=== PATIENT | male | born 1980 | race Caucasian/White ===

== ENCOUNTER 2022-12-02 12:55 | Inpatient (IN) | payer OTHER, SELFPAY ==
[2022-12-02] VITALS (26 sets, daily range): BP systolic 105–142; BP diastolic 57–84; PULSE 72–96; RESP 12–24; TEMP 36.3–38.8; O2SAT 90–97; BMI 23.6
--- NOTE | 2022-12-02 13:22 | CRLHL7_ITS ---
For Patients: As a result of the Century Cures Act, medical imaging exams and procedure reports are released immediately into your electronic medical record. You may view this report before your referring provider. If you have questions, please contact your health care provider. Indication: Right lower quadrant pain Technique: Volumetric multidetector CT images of the abdomen and pelvis were obtained after the administration of intravenous contrast. 76 cc Isovue 370 low osmolar intravenous contrast Comparison: None available. Findings: There is basilar atelectasis and parenchymal scar. The liver is normal in attenuation without intrahepatic biliary ductal dilatation. The portal vein is patent. The gallbladder is unremarkable without evidence of radiopaque calculus. There is no significant common biliary ductal dilatation or abrupt cut off. The spleen is normal in enhancement and size. There is mild thickening of the gastric antrum with minimal gastric mucosal hyperemia. The pancreas is normal in enhancement without significant atrophy. The adrenal glands are unremarkable. The kidneys demonstrate preserved corticomedullary differentiation without evidence of obstructive uropathy. There is mild to moderate stool seen throughout the colon with minimal colonic diverticulosis without definite evidence of diverticulitis. There is a markedly dilated fluid-filled appendix with moderate periappendiceal inflammatory change measuring up to 1.3 centimeters. There is no definite evidence of rupture. There is demonstration of a 4 millimeter calcified appendicolith at the base. There is no significant mesenteric, retroperitoneal, or pelvic sidewall lymph nodes. The aorta is nonaneurysmal. There is no significant atherosclerotic disease appreciated. The solid pelvic viscera are grossly unremarkable. There is no free fluid or free air. The anterior abdominal wall is intact without significant hernias. The lumbar vertebral body heights are grossly maintained in satisfactory alignment without evidence of displaced fracture, lytic or blastic lesion. Impression: There is a dilated fluid-filled appendix consistent with appendicitis measuring 1.2 centimeters in greatest dimension with moderate periappendiceal inflammatory change. There is a 4 millimeter calcified appendicolith at the base. There is no evidence of rupture or rim enhancing fluid collection Please note that all CT scans at this facility use dose modulation, iterative reconstruction, and/or weight-based dosing when appropriate to reduce radiation dose to as low as reasonably achievable. Dictated by Willie Denton MD @ 12/02/2022 2:48:54 PM (Electronically Signed)
--- NOTE | 2022-12-02 13:28 | ED_ITS ---
HPI - General Adult General Chief complaint: Abdominal Pain Stated complaint: Abdominal pain Time Seen by Provider: 12/02/22 13:06 History of Present Illness HPI narrative: Patient is a 41 year white male who has had 24 hours of abdominal discomfort, before that he had some general malaise and abdominal discomfort, but more pain today in the right lower quadrant. He has had some looser stool but no real diarrhea. He has been very healthy. He is on no home medications. He ate last about 2 hours ago. He has had no cardiac or respiratory problems. Reports that he did have significant pain in his right lower quadrant when he was driving in the car into the hospital. No recent illness, no COVID symptoms or cough. Related Data Allergies Allergy/AdvReac Type Severity Reaction Status Date / Time No Known Drug Allergies Allergy Verified 12/02/22 14:27 Review of Systems Status of ROS: Reports: 6 or more systems reviewed and unremarkable except as noted in History and below PFSH PFS Social History Smoking Status: Unknown if ever smoked Do you use any of these nicotine containing products: None Exam Narrative: Exam Narrative: Objective: Patient's vital signs unremarkable other than mild temperature He is alert orient x3 knows no distress Chest is clear heart rhythm regular heart murmur abdomen is got voluntary and peritoneal guarding in the right lower quadrant bowel sounds are hypoactive throughout he has definite got rigidity in his right lower quadrant, denies any symptoms Extremities are no edema neurologic nonfocal Const: Vital Signs, click to edit/add: Vital Signs - 24 hr 12/02/22 13:02 12/02/22 14:02 12/02/22 14:03 Temperature 99.3 F Pulse Rate 79 82 Pulse Rate [Right Pulse Oximeter] 86 Respiratory Rate 16 Blood Pressure 128/82 Blood Pressure [Ri ght Upper Arm] 132/77 Pulse Oximetry 97 96 96 Oxygen Delivery Me thod Room Air 12/02/22 14:15 12/02/22 14:20 12/02/22 14:49 Temperature 99.6 F Pulse Rate 79 Pulse Rate [Right Pulse Oximeter] Respiratory Rate Blood Pressure Blood Pressure [Ri ght Upper Arm] Pulse Oximetry 97 96 Oxygen Delivery Me thod 12/02/22 15:42 Temperature Pulse Rate Pulse Rate [Right Pulse Oximeter] 84 Respiratory Rate 20 Blood Pressure Blood Pressure [Ri ght Upper Arm] Pulse Oximetry 97 Oxygen Delivery Me thod Room Air Course Vital Signs Vital signs: Initial Vital Signs Temperature 99.3 F 12/02/22 13:02 Temperature Source Temporal Artery Scan 12/02/22 13:02 Pulse Rate 86 12/02/22 13:02 Pulse Rhythm Regular 12/02/22 13:02 Pulse Strength 3+ Normal 12/02/22 13:02 Respiratory Rate 16 12/02/22 13:02 Blood Pressure 132/77 12/02/22 13:02 Blood Pressure Mean 95 12/02/22 13:02 Blood Pressure Position Sitting 12/02/22 13:02 Pulse Oximetry 97 12/02/22 13:02 Oxygen Delivery Method Room Air 12/02/22 13:02 Vital Signs Temperature 99.3 F 12/02/22 13:02 Pulse Rate 86 12/02/22 13:02 Respiratory Rate 16 12/02/22 13:02 Blood Pressure 132/77 12/02/22 13:02 Pulse Oximetry 97 12/02/22 13:02 Oxygen Delivery Method Room Air 12/02/22 13:02 Temperature 99.6 F 12/02/22 14:49 Pulse Rate 84 12/02/22 15:42 Respiratory Rate 20 12/02/22 15:42 Blood Pressure 128/82 12/02/22 14:03 Pulse Oximetry 97 12/02/22 15:42 Oxygen Delivery Method Room Air 12/02/22 15:42 Medical Decision Making [facility] Narrative Medical decision making narrative: Patient is a 41-year-old white male with right lower quadrant pain with peritonitis likely consistent with appendicitis. The patient will get IV fluid, laboratory studies, CT scan with IV contrast of his abdomen and pelvis to confirm appendicitis. Would keep him NPO for now he last ate he reports 2 hours ago, so about 530 would be only 6 hours of NPO. He has had no recent illness. He has been very healthy. Surgical consult pending CT scan findings Lab Data Labs: Lab Results 12/02/22 Range/Units 13:33 WBC 16.36 H (4.50-11.00) K/uL RBC 5.06 (4.30-5.90) m/uL Hgb 15.1 (13.5-17.5) gm/dL Hct 44.2 (37.0-53.0) % MCV 87 (80-100) fL MCH 30 (26-34) pg MCHC 34 (32-36) gm/dL RDW Coeff of Caesar 12.5 (11.5-15.5) % Plt Count 207 (140-440) K/uL Neut % (Auto) 81.8 H (42.0-72.0) % Lymph % (Auto) 6.5 L (20-44) % Taney % (Auto) 11.2 H (0.0-11.0) % Eos % (Auto) 0.1 (0.0-7.0) % Baso % (Auto) 0.2 (0.0-3.0) % Neut # (Auto) 13.40 H (1.7-7.0) K/uL Lymph # (Auto) 1.10 (0.90-2.90) K/uL Taney # (Auto) 1.80 H (0.00-0.90) K/UL Eos # (Auto) 0.00 (0.00-0.50) K/uL Baso # (Auto) 0.00 (0.00-0.30) K/uL Sodium 136 (135-149) mmol/L Potassium 4.1 (3.6-5.1) mmol/L Chloride 104 (96-114) mmol/L Carbon Dioxide 27 (20-32) mmol/L BUN 13 (5-24) mg/dL Creatinine 0.7 (0.5-1.5) mg/dL Estimated Creat Clear 137.07 Estimated GFR 120 ml/min Glucose 116 H (60-115) mg/dL Calcium 8.8 (8.4-10.6) mg/dL Total Bilirubin 1.4 (0.1-1.5) mg/dL Direct Bilirubin 0.2 (0.0-0.5) mg/dL AST 18 (12-35) U/L ALT 21 (4-50) U/L Alkaline Phosphatase 44 (40-150) U/L C-Reactive Protein 8.2 H (0.5-1.0) mg/dL Total Protein 6.8 (6.0-8.3) g/dL Albumin 4.2 (3.3-5.0) g/dL Amylase 50 (18-89) U/L Discharge Plan Discharge Clinical Impression: Abdominal pain, acute, Acute appendicitis
[2022-12-02 13:39] LABS: Basophils Percent Auto 0.2 % (0.0-3.0); Eosinophils Percent Auto 0.1 % (0.0-7.0); Hematocrit 44.2 % (37.0-53.0); Hemoglobin* 15.1 gm/dL (13.5-17.5); Immature Granulocytes Pct Auto 0.2 %; Lymphocytes Percent Auto 6.5 % (20-44); Mean Corpuscular HGB Conc 34 gm/dL (32-36); Mean Corpuscular Hemoglobin 30 pg (26-34); Mean Corpuscular Volume 87 fL (80-100); Monocytes Percent Auto 11.2 % (0.0-11.0); Neutrophils Percent Auto 81.8 % (42.0-72.0); Platelet Count* 207 K/uL (140-440); RDW Coefficient of Variation % 12.5 % (11.5-15.5); Red Blood Count 5.06 m/uL (4.30-5.90); White Blood Count* 16.36 K/uL (4.50-11.00)
[2022-12-02 13:45] LABS: Slide Review Reflex No
[2022-12-02 13:51] LABS: Chloride* 104 mmol/L (96-114)
[2022-12-02 13:52] LABS: Albumin* 4.2 g/dL (3.3-5.0); Potassium* 4.1 mmol/L (3.6-5.1); Sodium* 136 mmol/L (135-149)
[2022-12-02 13:54] LABS: Amylase* 50 U/L (18-89); Carbon Dioxide* 27 mmol/L (20-32)
[2022-12-02 13:55] LABS: Alkaline Phosphatase* 44 U/L (40-150); Aspartate Amino Transferase* 18 U/L (12-35); Bilirubin Direct* 0.2 mg/dL (0.0-0.5); Bilirubin Total* 1.4 mg/dL (0.1-1.5); Blood Urea Nitrogen* 13 mg/dL (5-24); Creatinine* 0.7 mg/dL (0.5-1.5); Est. Creatinine Clearance* 137.07; Estimated Glomerular Filt Rate 120 ml/min; Glucose* 116 mg/dL (60-115); Total Protein* 6.8 g/dL (6.0-8.3)
[2022-12-02 13:56] LABS: Alanine Aminotransferase* 21 U/L (4-50); Calcium* 8.8 mg/dL (8.4-10.6)
[2022-12-02] MEDS: 0.9 % SODIUM CHLORIDE 1000 ml 1,000 ML 6000 ML IV (13:56)
[2022-12-02 13:58] LABS: C Reactive Protein* 8.2 mg/dL (0.5-1.0)
[2022-12-02] MEDS: HYDROmorphone 0.5 mg/0.5 ml inj IVP ×2 (15:31→21:00)
--- NOTE | 2022-12-02 15:49 | P.GSHP_ITS ---
History of Present Illness History of Present Illness Date Seen: 12/02/22 Chief complaint: Abdominal pain Narrative: Juan Gan is a 41 year old male who presented to the emergency department with a less than 1 day history of abdominal pain. He states that the pain initially started in the middle of his abdomen. It then migrated to the right lower quadrant. He has never had pain like this before. The pain gets worse with any sort of movement any noticed every bump on his drive over to the hospital. Did have some nausea, no associated emesis. No fevers at home. He has never had abdominal surgery before. Patient had half a sandwich around noon. Review of Systems Status of ROS: Reports: 10 or more systems reviewed and unremarkable except as noted in History and below [facility] Social History Smoking Status: Unknown if ever smoked Do you use any of these nicotine containing products: None Meds Home Medications and Allergies Allergies Allergy/AdvReac Type Severity Reaction Status Date / Time No Known Drug Allergies Allergy Verified 12/02/22 14:27 Exam Narrative: Exam Narrative: General: Alert and oriented, no acute distress Respiratory: Equal breath rise bilaterally, maintained on room air CV: Regular rhythm rate, well perfused Abdomen: Soft, tender to palpation right lower quadrant with some guarding, no rebound Const: Vital Signs, click to edit/add: Vital Signs - 24 hr 12/02/22 13:02 12/02/22 14:02 12/02/22 14:03 Temperature 99.3 F Pulse Rate 79 82 Pulse Rate [Right Pulse Oximeter] 86 Respiratory Rate 16 Blood Pressure 128/82 Blood Pressure [Ri ght Upper Arm] 132/77 Pulse Oximetry 97 96 96 Oxygen Delivery Me thod Room Air 12/02/22 14:15 12/02/22 14:20 12/02/22 14:49 Temperature 99.6 F Pulse Rate 79 Pulse Rate [Right Pulse Oximeter] Respiratory Rate Blood Pressure Blood Pressure [Ri ght Upper Arm] Pulse Oximetry 97 96 Oxygen Delivery Me thod 12/02/22 15:42 Temperature Pulse Rate Pulse Rate [Right Pulse Oximeter] 84 Respiratory Rate 20 Blood Pressure Blood Pressure [Ri ght Upper Arm] Pulse Oximetry 97 Oxygen Delivery Me thod Room Air Results Results Labs: Evidence of leukocytosis (white blood cell count 16) Abdomen CT scan report/results: report reviewed and image reviewed Assessment and Plan Assessment and plan (1) Acute appendicitis: Status: Acute Plan The patient presented with a history, exam and imaging findings consistent with acute appendicitis. I discussed the treatment options with the patient including non-surgical and surgical options. I recommended laparoscopic appendectomy. The risks of surgery were reviewed with the patient including the risks of bleeding, post-operative wound or intra-abdominal infection, injury to abdominal structures and possible conversion to an open operation. We also discussed anesthetic complications including [place], stroke, respiratory failure and blood clots. The patient voiced an understanding of our conversation, had the opportunity to ask questions, agreed to accept the risks of surgery and asked that we proceed with surgery. This is considered an emergent procedure, given the risk of perforation and developing sepsis. Will plan for patient to go to the operating room as soon as possible.
[2022-12-02] MEDS: KETOROLAC 15 MG/ML inj IVP (18:50)
[2022-12-02] MEDS: LACTATED RINGERS 1000 ML 1,000 ML 125 ML IV (18:50)
[2022-12-02] MEDS: PIPERACILLIN/TAZOBACTAM 3.375 GM INJ IVPB (19:55)
[2022-12-02] MEDS: BUPIVACAINE 0.25% 30 ML INJECTION (20:37)
--- NOTE | 2022-12-02 20:52 | P.GSOP_ITS ---
Operative Note Date of procedure: 12/02/22 Pre-op diagnosis: Acute appendicitis Post-op diagnosis: Same, perforated Type of Procedure: Laparoscopic appendectomy Indications: Patient is a 41-year-old male who presented to the emergency department with clinical workup and CT scan confirming a diagnosis of acute appendicitis. Risks and benefits of operative intervention were discussed at length with the patient. Risks included but was not limited to: Bleeding, infection, risk of damage to surrounding structures, possible need for additional procedures, possible need to convert to an open operation and postoperative complications such as pneumonia, pulmonary emboli or [place]. All questions and concerns were addressed with the patient agreeing to proceed. Procedure Description: After discussing the risks and benefits of the procedure, the patient signed informed consent.? The operative site was marked and the patient was brought to the operating room and placed on the operating table in supine position.? Care was taken to pad the patient's pressure points.?? The patient was then intubated by anesthesia.?? The operative site was then prepped and draped in the usual sterile fashion.? A time-out was then performed. Entrance to the abdomen was obtained via a 5 mm optical trocar in the left upper quadrant. The abdomen was insufflated and briefly surveyed for any signs of injury. There were none. A 12 mm port was placed lateral to the umbilicus as well as a 5 mm port in the left lower quadrant under direct vision. The patient was then placed in Trendelenburg position with the right side up. The small bowel was gently moved out of the way and the appendix was in view. A small amount of dissection was necessary to free the appendix from the surrounding pelvic attachments. The omentum was densely adherent to the appendix, with evidence of a surrounding rind and some fibrinous exudate. A small perforation was present on the top of midbody with some stool contamination. The body was grasped and pulled into view. A mesenteric window was created between the base of the appendix, which did not appear inflamed and the mesoappendix. A 45 mm Endo-ROCK sanchez load stapler was then used to transect the appendix at its base. A 45 mm vascular load stapler was then used to take the mesoappendix. The staple lines were inspected for bleeding. There was none. The appendix was then removed from the abdomen using an Endo-Catch bag. The specimen was sent to pathology. The 12 mm port site fascia was closed with 0 Vicryl via the Taran- Cuong. All other ports were removed under direct visualization. The skin was then closed with absorbable subcuticular suture. Sterile dressings were then applied. Instrument sponge and needle counts were correct at the end of the case. The patient was then woken and transported to the PACU in stable condition. Findings: Perforated appendicitis, necrosis to the body and tip of the appendix. Small amount of stool contamination in right lower quadrant. Anesthesia: GETA Surgeon: Elisabeth Ceballos MD Estimated blood loss (mL): 2 Specimen: Appendix Condition: stable Disposition: floor
--- NOTE | 2022-12-02 20:56 | P.ANES_ITS ---
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
[2022-12-02] MEDS: LACTATED RINGERS 1000 ML 1,000 ML 35 ML IV (21:15)
[2022-12-02] MEDS: fentaNYL 100 MCG/2 ML inj 50 MCG IVP ×2 (21:16→21:26)
[2022-12-02] MEDS: OXYCODONE 5 MG TABLET PO (22:05)
--- NOTE | 2022-12-02 22:45 | PC.NURSE ---
End of shift ([id number]): Patient pleasant and cooperative. Patient vitally stable, lungs clear, BS WNL, IV running LR at 125. Patient SBA with IV pole. Patient rates pain 5/10, toradol given once before surgery, and 5 of oxy given once after surgery. Patient did have a fever of 101.8 before surgery, patient has been afebrile since. Patient tolerating clear liquid diet and has not urinated. Abdominal Lap sites x3 C/D/I.
[2022-12-02] MEDS: ACETAMINOPHEN 325 MG TABLET 650 MG PO (23:52)
[2022-12-03] VITALS (10 sets, daily range): BP systolic 107–138; BP diastolic 71–84; PULSE 78–99; RESP 14–24; TEMP 36.7–37.9; O2SAT 90–94
--- NOTE | 2022-12-03 | CRLHL7_ITS ---
For Patients: As a result of the Century Cures Act, medical imaging exams and procedure reports are released immediately into your electronic medical record. You may view this report before your referring provider. If you have questions, please contact your health care provider. Indication: Chest pain shortness of breath, postoperative Technique: Chest 1 view Comparison: None Findings/Impression: Cardiovascular and mediastinum: Heart size and vasculature are normal in caliber and appearance. Lungs and pleural space: Low lung volumes without pleural effusion or pneumothorax. Basilar discoid atelectasis. Mild reticular interstitial prominence in the perihilar regions, possibly mild interstitial edema. Bones and soft tissues: No acute findings. Dictated by Crescencio Rios MD @ 12/03/2022 2:39:52 PM (Electronically Signed)
[2022-12-03] MEDS: OXYCODONE 5 MG TABLET PO ×5 (02:30→22:26)
[2022-12-03] MEDS: PIPERACILLIN/TAZOBACTAM 3.375 GM in 0.9 % SODIUM CHLORIDE Mini-bag 100 ML IVPB ×4 (02:30→19:37)
[2022-12-03] MEDS: HYDROmorphone 0.5 mg/0.5 ml inj IVP ×3 (04:26→12:05)
[2022-12-03] MEDS: LACTATED RINGERS 1000 ML 1,000 ML 35 ML IV (06:51)
[2022-12-03 07:38] LABS: Basophils Percent Auto 0.2 % (0.0-3.0); Hematocrit 39.9 % (37.0-53.0); Hemoglobin* 13.2 gm/dL (13.5-17.5); Immature Granulocytes Pct Auto 1.1 %; Lymphocytes Percent Auto 7.1 % (20-44); Mean Corpuscular HGB Conc 33 gm/dL (32-36); Mean Corpuscular Hemoglobin 30 pg (26-34); Mean Corpuscular Volume 90 fL (80-100); Monocytes Percent Auto 8.6 % (0.0-11.0); Platelet Count* 179 K/uL (140-440); RDW Coefficient of Variation % 12.6 % (11.5-15.5); Red Blood Count 4.43 m/uL (4.30-5.90); White Blood Count* 12.26 K/uL (4.50-11.00)
--- NOTE | 2022-12-03 07:42 | PC.NURSE ---
END OF SHIFT NOTE: PT PLEASANT AND COOPERATIVE WITH CARES. - BOUBACAR AT BEDSIDE OVERNIGHT. PT DENIES CP, SOB, N/V. AMBULATES INDEPENDENTLY WITHIN ROOM. VSS ON RA; AFEBRILE. C/O ABDOMINAL PAIN 4-7/10 WITH RELIEF FROM ICE AND PRN PAIN MEDS. CALL LIGHT WITHIN PT?S REACH. 3 LAP SITES CDI. TOLERATING WATER AND ICE CHIPS OVERNIGHT.
[2022-12-03 07:44] LABS: Slide Review Reflex No
--- NOTE | 2022-12-03 08:20 | PM.GSPN ---
Subjective Subjective Date Seen: 12/03/22 Interval history: Patient is doing okay this morning. He is still having some abdominal discomfort, but this is improved compared to before the surgery. He is also complaining of some shoulder pain. He has not yet gotten up or walk the halls. He has been able to ambulate to the bathroom. He is tolerating some sips of liquids. No appetite yet has not tried regular food. He has been burping quite a bit, no passage of gas. Exam Narrative: Exam Narrative: General: Alert and oriented, no acute distress Abdomen: Mild distention, some tenderness in right lower quadrant with no guarding or rebound. Incisions clean/dry/intact in appropriately tender to palpation. Const: Vital Signs, click to edit/add: Vital Signs - 24 hr 12/02/22 13:02 12/02/22 14:02 12/02/22 14:03 Temperature 99.3 F Pulse Rate 79 82 Pulse Rate [Left R adial] Pulse Rate [Pulse Oximeter] Pulse Rate [Right Pulse Oximeter] 86 Respiratory Rate 16 Blood Pressure 128/82 Blood Pressure [Le ft Arm] Blood Pressure [Ri ght Arm] Blood Pressure [Ri ght Upper Arm] 132/77 Pulse Oximetry 97 96 96 Oxygen Delivery Me thod Room Air 12/02/22 14:15 12/02/22 14:20 12/02/22 14:49 Temperature 99.6 F Pulse Rate 79 Pulse Rate [Left R adial] Pulse Rate [Pulse Oximeter] Pulse Rate [Right Pulse Oximeter] Respiratory Rate Blood Pressure Blood Pressure [Le ft Arm] Blood Pressure [Ri ght Arm] Blood Pressure [Ri ght Upper Arm] Pulse Oximetry 97 96 Oxygen Delivery Me thod 12/02/22 15:42 12/02/22 16:22 12/02/22 16:29 Temperature 99.0 F 99.0 F Pulse Rate Pulse Rate [Left R adial] 85 85 Pulse Rate [Pulse Oximeter] Pulse Rate [Right Pulse Oximeter] 84 Respiratory Rate 20 18 18 Blood Pressure Blood Pressure [Le ft Arm] Blood Pressure [Ri ght Arm] 123/79 123/79 Blood Pressure [Ri ght Upper Arm] Pulse Oximetry 97 96 96 Oxygen Delivery Me thod Room Air Room Air Room Air 12/02/22 19:05 12/02/22 20:55 12/02/22 21:00 Temperature 101.9 F H 100.7 F H Pulse Rate 85 81 Pulse Rate [Left R adial] 86 Pulse Rate [Pulse Oximeter] Pulse Rate [Right Pulse Oximeter] Respiratory Rate 24 18 16 Blood Pressure 142/84 H 115/71 Blood Pressure [Le ft Arm] 125/79 Blood Pressure [Ri ght Arm] Blood Pressure [Ri ght Upper Arm] Pulse Oximetry 94 92 93 Oxygen Delivery Me od Room Air Room Air 12/02/22 21:05 12/02/22 21:10 12/02/22 21:15 Temperature Pulse Rate 81 81 79 Pulse Rate [Left R adial] Pulse Rate [Pulse Oximeter] Pulse Rate [Right Pulse Oximeter] Respiratory Rate 18 16 16 Blood Pressure 109/65 126/70 131/71 Blood Pressure [Le ft Arm] Blood Pressure [Ri ght Arm] Blood Pressure [Ri ght Upper Arm] Pulse Oximetry 90 91 92 Oxygen Delivery Me thod 12/02/22 21:20 12/02/22 21:25 12/02/22 21:30 Temperature Pulse Rate 84 80 72 Pulse Rate [Left R adial] Pulse Rate [Pulse Oximeter] Pulse Rate [Right Pulse Oximeter] Respiratory Rate 14 12 12 Blood Pressure 110/65 118/61 110/57 L Blood Pressure [Le ft Arm] Blood Pressure [Ri ght Arm] Blood Pressure [Ri ght Upper Arm] Pulse Oximetry 91 90 94 Oxygen Delivery Mi thod 12/02/22 21:45 12/02/22 21:51 12/02/22 22:01 Temperature 99.6 F 100.8 F H 98.3 F Pulse Rate 85 81 Pulse Rate [Left R adial] 78 Pulse Rate [Pulse Oximeter] Pulse Rate [Right Pulse Oximeter] Respiratory Rate 14 14 Blood Pressure 129/65 Blood Pressure [Le ft Arm] 105/64 107/65 Blood Pressure [Ri ght Arm] Blood Pressure [Ri ght Upper Arm] Pulse Oximetry 92 90 [facility] Room Air 12/02/22 22:15 12/02/22 22:30 12/02/22 22:45 Temperature 97.4 F L 97.4 F L 97.9 F Pulse Rate Pulse Rate [Left R adial] 92 88 92 Pulse Rate [Pulse Oximeter] Pulse Rate [Right Pulse Oximeter] Respiratory Rate 14 14 14 Blood Pressure Blood Pressure [Le ft Arm] 107/65 126/75 138/79 Blood Pressure [Ri ght Arm] Blood Pressure [Ri ght Upper Arm] Pulse Oximetry 92 92 91 Oxygen Delivery Me thod Room Air Room Air Room Air 12/02/22 23:00 12/02/22 23:30 12/02/22 23:30 Temperature 98.7 F Pulse Rate Pulse Rate [Left R adial] Pulse Rate [Pulse Oximeter] 90 96 96 Pulse Rate [Right Pulse Oximeter] Respiratory Rate 16 18 18 Blood Pressure Blood Pressure [Le ft Arm] 128/74 119/75 Blood Pressure [Ri ght Arm] Blood Pressure [Ri ght Upper Arm] Pulse Oximetry 90 92 Oxygen Delivery Me thod Room Air Room Air 12/02/22 23:30 12/03/22 00:00 12/03/22 01:00 Temperature 98.7 F Pulse Rate Pulse Rate [Left R adial] Pulse Rate [Pulse Oximeter] 96 85 97 Pulse Rate [Right Pulse Oximeter] Respiratory Rate 18 16 14 Blood Pressure Blood Pressure [Le ft Arm] 119/75 116/74 108/71 Blood Pressure [Ri ght Arm] Blood Pressure [Ri ght Upper Arm] Pulse Oximetry 92 91 92 Oxygen Delivery Mi thod Room Air Room Air Room Air 12/03/22 02:00 12/03/22 03:00 12/03/22 03:00 Temperature Pulse Rate Pulse Rate [Left R adial] Pulse Rate [Pulse Oximeter] 86 95 95 Pulse Rate [Right Pulse Oximeter] Respiratory Rate 16 16 16 Blood Pressure Blood Pressure [Le ft Arm] 118/74 138/80 138/80 Blood Pressure [Ri ght Arm] Blood Pressure [Ri ght Upper Arm] Pulse Oximetry 94 93 93 Oxygen Delivery Me thod Room Air Room Air Room Air 12/03/22 04:00 Temperature Pulse Rate Pulse Rate [Left R adial] Pulse Rate [Pulse Oximeter] 96 Pulse Rate [Right Pulse Oximeter] Respiratory Rate 16 Blood Pressure Blood Pressure [Le ft Arm] 119/84 Blood Pressure [Ri ght Arm] Blood Pressure [Ri ght Upper Arm] Pulse Oximetry 94 Oxygen Delivery Me thod Room Air Labs/Imaging Labs Labs: WBC 16--> 12 Progress Note: A&P Assessment and plan (1) Acute appendicitis: Status: Acute Assessment and Plan: Patient is postop day 1 laparoscopic appendectomy for perforated appendicitis. Vital signs stable patient afebrile overnight. He has been continued on IV antibiotics with a down trending release leukocytosis. At this time he has not had return of bowel function, but is tolerating some clear liquids. Educated patient on being very slow to advance diet given risk for postoperative ileus. Encouraged ambulation. At this time patient is not ready for discharge.
--- NOTE | 2022-12-03 10:17 | CRLHL7_ITS ---
For Patients: As a result of the Century Cures Act, medical imaging exams and procedure reports are released immediately into your electronic medical record. You may view this report before your referring provider. If you have questions, please contact your health care provider. Indication: Right-sided testicular pain Technique: Ultrasound of the scrotum and contents. Sonographic encarnacion-scale images were obtained with spectral and color Doppler waveform and spectral waveform analysis of the testicles. Comparison: None Findings: Right testicle: 4.2 x 3.0 x 4.4 centimeters. Normal echogenicity and blood flow. Right epididymal cyst measuring 4 millimeters. Left testicle 4.3 x 2.2 x 3.2 centimeters. Normal echogenicity and blood flow. Epididymis unremarkable. Impression: Right epididymal cyst, otherwise unremarkable scrotal ultrasound. Normal bilateral testicular blood flow. Dictated by Crescencio Rios MD @ 12/03/2022 12:07:54 PM (Electronically Signed)
[2022-12-03] MEDS: LACTATED RINGERS 1000 ML 1,000 ML 125 ML IV (14:25)
[2022-12-03] MEDS: diphenhydrAMINE 50 MG/ML inj IVP ×2 (14:35→22:26)
[2022-12-03] MEDS: KETOROLAC 15 MG/ML inj IVP (17:43)
[2022-12-03] MEDS: SENNOSIDES 1 TAB TABLET PO (17:44)
--- NOTE | 2022-12-03 18:58 | PC.NURSE ---
Pt calm and cooperative during shift. Pt alert and oriented. Pt has had pain ranging from 5-9 see EMAR for intervention. Pt had left testicular pain; Ultrasound order results unremarkable. Pt had started breathing shallow around 11am and had pain with breathing. Dr. Ceballos notified chest X ray ordered and EKG obtained; unremarkable reports. Pt?s oxygen saturations started dropping around 1430 after walking and using incentive spirometer. Oxygen saturations ranging from 85-88%. Dr. Ceballos notified and advised Pt to be up and walking as these are aftereffects of surgery, not deep breathing and not walking. Pt started on 1 L of oxygen and maintained saturations of 88%; Pt bumped to 2 L and had oxygen saturations of 90. Pt reeducated on importance of getting up and walking, using incentive spirometer, and deep breathing. Pt has walked halls x 3?during shift. Pt oxygen saturations with walking remained around 88% at 1815; at rest when back in room Pt maintained 88%; encouraged to take deep breaths. Pt changed to 1 L when back in room.?Pt has been drinking fluids and has had little intake of food. ?
--- NOTE | 2022-12-03 19:09 | RESP.RT ---
Patient seen while laying in bed initially and he had SATs of 88% on 2L NC. We discussed the need to be up and walking or sitting upright in a chair to allow for deep breathing. After doing deep breathing exercises his SATs increased to 92%. He continued to do walks in the ji and his SATs while walking on room air ranged from 87%-91%. Pain management will be garcia to him being able to be up walking and taking deep breaths.
--- NOTE | 2022-12-03 19:22 | PC.NURSE ---
Spoke with Dr. Ceballos about Pt's need for SCD's/TEDS. Dr. Ceballos indicated that Pt does not need either since he is ambulating in room and based on Pt's comfort.
[2022-12-03] MEDS: ACETAMINOPHEN 325 MG TABLET 650 MG PO (20:50)
[2022-12-04] MEDS: LACTATED RINGERS 1000 ML 1,000 ML 125 ML IV ×2 (00:33→08:18)
[2022-12-04] MEDS: PIPERACILLIN/TAZOBACTAM 3.375 GM in 0.9 % SODIUM CHLORIDE Mini-bag 100 ML IVPB ×3 (02:33→13:58)
[2022-12-04] MEDS: OXYCODONE 5 MG TABLET PO ×2 (02:34→06:28)
[2022-12-04 02:55] VITALS: BP 106/73; PULSE 101; RESP 20; TEMP 37.2; O2SAT 93
--- NOTE | 2022-12-04 05:31 | PC.NURSE ---
[id number] Pt pleasant and cooperative, slept between cares during night. Ambulated halls x2 this shift, encouraged patient to take deep breathes and use IS, pt cooperative and willing. O2 sats mid to upper 80's on RA while ambulating, increases to low 90's when instructed patient to take deep abd breaths. 2LPM NC required during the night to maintain sats >90%. Pt states increase in gas pain and passing flatulence with relief from pain, bowel sounds active. Denies N/V, does state he has occasional hiccups. lung sounds diminished in the bases, continue to encourage patient to take deep breaths. Pain managed with PO pain medications.
[2022-12-04] MEDS: ACETAMINOPHEN 325 MG TABLET 650 MG PO (06:28)
[2022-12-04 06:50] LABS: Basophils Percent Auto 0.3 % (0.0-3.0); Eosinophils Percent Auto 0.2 % (0.0-7.0); Hematocrit 36.7 % (37.0-53.0); Hemoglobin* 12.3 gm/dL (13.5-17.5); Immature Granulocytes Pct Auto 0.2 %; Lymphocytes Percent Auto 5.6 % (20-44); Mean Corpuscular HGB Conc 34 gm/dL (32-36); Mean Corpuscular Hemoglobin 30 pg (26-34); Mean Corpuscular Volume 90 fL (80-100); Neutrophils Percent Auto 84.7 % (42.0-72.0); Platelet Count* 160 K/uL (140-440); RDW Coefficient of Variation % 12.4 % (11.5-15.5); Red Blood Count 4.07 m/uL (4.30-5.90); White Blood Count* 12.17 K/uL (4.50-11.00)
[2022-12-04 06:51] LABS: Slide Review Reflex No
[2022-12-04 08:34] VITALS: BP 106/71; BP 106/73; PULSE 88; RESP 20; TEMP 37.2; O2SAT 93
--- NOTE | 2022-12-04 08:53 | P.GSPN_ITS ---
Subjective Subjective Date Seen: 12/04/22 Interval history: Patient feels like he is doing better today compared to yesterday. He was able to ambulate the halls yesterday, which helped with his gas pains. He has continued to pass gas, no bowel movement. He is tolerating a full liquid diet, but still has a decrease in appetite. Denies any shortness of breath or chest pain. His testicular pain is also improved. Low-grade fever yesterday afternoon 100.3. Exam Narrative: Exam Narrative: General: Alert and oriented, no acute distress. Sitting comfortably in a chair Abdomen: Mild distention, appropriately tender over incision sites, some mild tenderness right lower quadrant with no guarding or rebound. Const: Vital Signs, click to edit/add: Vital Signs - 24 hr 12/03/22 11:40 12/03/22 15:00 12/03/22 15:00 Temperature 98.2 F 100.3 F H Pulse Rate [Pulse Oximeter] 89 99 99 Respiratory Rate 20 24 24 Blood Pressure [Le ft Arm] 110/76 120/79 Blood Pressure [Ri ght Arm] Pulse Oximetry 90 90 Oxygen Delivery Me thod Room Air Nasal Cannula Oxygen Flow Rate 2 12/03/22 19:00 12/03/22 22:35 12/03/22 22:35 Temperature 98.1 F 98.3 F Pulse Rate [Pulse Oximeter] 89 93 Respiratory Rate 20 20 20 Blood Pressure [Le ft Arm] 115/80 Blood Pressure [Ri ght Arm] 109/77 Pulse Oximetry 94 93 93 Oxygen Delivery Me thod Nasal Cannula Nasal Cannula Nasal Cannula Oxygen Flow Rate 1 1 1 12/04/22 02:55 12/04/22 08:34 12/04/22 08:34 Temperature 98.9 F Pulse Rate [Pulse Oximeter] 101 H 88 Respiratory Rate 20 20 Blood Pressure [Le ft Arm] Blood Pressure [Ri ght Arm] 106/73 Pulse Oximetry 93 93 Oxygen Delivery Me thod Nasal Cannula Nasal Cannula Oxygen Flow Rate 1 0 12/04/22 08:34 Temperature 98.9 F Pulse Rate [Pulse Oximeter] 88 Respiratory Rate 20 Blood Pressure [Le ft Arm] 106/71 Blood Pressure [Ri ght Arm] 106/73 Pulse Oximetry 93 Oxygen Delivery Me thod Nasal Cannula Oxygen Flow Rate 0 Labs/Imaging Labs Labs: WBC (--12--12) Progress Note: A&P Assessment and plan (1) Acute appendicitis: Status: Acute Assessment and Plan: Patient is postop day 2 laparoscopic appendectomy for perforated appendicitis. Patient did have a low-grade fever yesterday afternoon, but I suspect this is secondary to atelectasis since he was initially very hesitant to take a deep breath. His abdominal pain since then has improved and he is now breathing without difficulty and denies any shortness of breath. He was afebrile overnight. He continues on IV antibiotics and will plan for a 10 day course tot al. Leukocytosis remains mildly elevated (12). He has had return of bowel function with passage of gas and is tolerating clear liquids. Patient was encouraged to gradually increase his diet. Encouraged ambulation. Anticipate discharge later today versus tomorrow.
[2022-12-04 12:00] VITALS: BP 119/81; PULSE 93; RESP 20; TEMP 36.5; O2SAT 92
[2022-12-04] MEDS: IBUPROFEN 600 MG TABLET PO (12:01)
--- NOTE | 2022-12-04 14:46 | PC.NURSE ---
Pt reports pain is much better today vs. yesterday. ibuprofen given for pain, no other pain meds needed this shift. Ice to abdomen. lap sites intact and glued. flatus present. pt up ambulating in hallway. LS CTA but diminished at bases. 02 sats 90-93% on RA, no supplemental oxygen needed. no testicular pain reported today. appetite improving.
[2022-12-04 15:05] VITALS: BP 129/65; PULSE 81; RESP 20; TEMP 36.5
--- NOTE | 2022-12-04 15:43 | PC.NURSE ---
reviewed d/c instructions with patient. pt declined any further questions. IV removed without issue. pt denied pain at d/c. pt discharged from m/s unit at 1540.
== END 2022-12-04 15:45 | disposition home or self-care (01) | DRG 339 ==
LOC: ED 15:33 → SS 16:01 → MEDSURG 16:02 → SS 12-03 15:51 → MEDSURG 12-03 15:51
PROVIDERS: Admitting Provider Surgery; Emergency Provider Family Medicine; Visit Provider Surgery
PROC: 0DTJ4ZZ Resection of Appendix, Percutaneous Endoscopic Approach (ICD-10-PCS; CPT 44970; principal; 2022-12-02 18:45)
DX: K35.32 Acute appendicitis with perforation, localized peritonitis, and gangrene, without abscess (principal); J95.89 Other postprocedural complications and disorders of respiratory system, not elsewhere classified; J98.11 Atelectasis; R10.31 Right lower quadrant pain
CPT/HCPCS: 00840; 36415; 71045; 74177; 76870; 80048; 80076; 82150; 85025; 86140; 88304; 93005; 93976; 94761; 99140; 99284; 99285; A9270; J0330; J1100; J1170; J1200; J1885; J2250; J2405; J2543; J2704; J2710; J3010; J3490; J7030; J7120; Q9967

== ENCOUNTER 2022-12-29 17:56 | Outpatient (RCR) | payer OTHER, SELFPAY ==
[2022-12-23] MEDS: 0.9 % SODIUM CHLORIDE 250 ml IV (18:13)
[2022-12-23] MEDS: ERTAPENEM 1 GM in 0.9 % SODIUM CHLORIDE Mini-bag 100 ML IVPB (18:13)
[2022-12-23 18:14] VITALS: BP 124/80; RESP 18; TEMP 36.8; O2SAT 95
--- NOTE | 2022-12-23 18:47 | PC.NURSE ---
Pt arrived for IV infusion. IV started, infusion complete, IV DC'd. Pt will return 5 more days @1800 except Wednesday due to child's graduation, he will arrive around 1630 on Wednesday
[2022-12-23 19:00] VITALS: BP 132/88; RESP 18; TEMP 36.8; O2SAT 96
[2022-12-24] MEDS: 0.9 % SODIUM CHLORIDE 250 ml IV (18:01)
[2022-12-24] MEDS: ERTAPENEM 1 GM in 0.9 % SODIUM CHLORIDE Mini-bag 100 ML IVPB (18:01)
[2022-12-24 19:00] VITALS: BP 122/76; RESP 18; TEMP 36.8; O2SAT 97
[2022-12-25] MEDS: ERTAPENEM 1 GM in 0.9 % SODIUM CHLORIDE Mini-bag 100 ML IVPB (16:41)
[2022-12-25 17:25] VITALS: BP 119/76; PULSE 68; RESP 18; TEMP 37; O2SAT 99
--- NOTE | 2022-12-25 17:40 | PC.NURSE ---
OP Infusion [id number]- IV initiated, infused antibiotic without issue. IV removed after infusion with catheter intact. Patient tolerates infusion well with no complication.
[2022-12-25 18:10] VITALS: BP 112/76; PULSE 77; RESP 18; TEMP 36.9; O2SAT 97
[2022-12-26] MEDS: ERTAPENEM 1 GM in 0.9 % SODIUM CHLORIDE Mini-bag 100 ML IVPB (18:20)
[2022-12-26] MEDS: 0.9 % SODIUM CHLORIDE 250 ml IV (18:22)
[2022-12-26 19:00] VITALS: BP 126/75; PULSE 76; RESP 18; TEMP 36.9; O2SAT 97
--- NOTE | 2022-12-26 19:34 | PC.NURSE ---
Nurse note: Pt arrived for scheduled outpatient IV antibiotic infusion at 1800. New IV line set up and infusion started at 1810. Pre-treatment v/s recorded as T 98.4, P 77, O2 97, R 18, and Bp 112/76. Treatment lasted for about 45 minutes uneventfully. Post-infusion v/s was T 98.5, P 76, O2 97, and Bp 126/75. Pt left the facility at 1720.
[2022-12-27] MEDS: ERTAPENEM 1 GM in 0.9 % SODIUM CHLORIDE Mini-bag 100 ML IVPB (19:22)
[2022-12-27] MEDS: 0.9 % SODIUM CHLORIDE 250 ml IV (19:23)
[2022-12-27 19:24] VITALS: BP 112/72; PULSE 81; RESP 18; TEMP 37.3; O2SAT 96
--- NOTE | 2022-12-27 23:13 | PC.NURSE ---
Nurse note: Pt arrived for scheduled outpatient IV antibiotic infusion at 1900. New IV line set up and infusion started at 1930. Pre-treatment v/s recorded as T 99.1, P 81, O2 96, R 18, and Bp 112/72. Treatment lasted for about 30 minutes uneventfully. Post-infusion v/s was T 98.5, P 769 O2 96, and Bp 122/73. Pt left the facility at 2014.
[2022-12-28] MEDS: ERTAPENEM 1 GM in 0.9 % SODIUM CHLORIDE Mini-bag 100 ML IVPB (18:14)
[2022-12-28] MEDS: SODIUM CHLORIDE 0.9 % (FLUSH) 10 ML SYRINGE 5 ML IVF (18:15)
[2022-12-28] MEDS: 0.9 % SODIUM CHLORIDE 250 ml IV (18:16)
[2022-12-28 19:08] VITALS: BP 114/74; PULSE 84; RESP 16; TEMP 37.3; O2SAT 96
[2022-12-29] MEDS: ERTAPENEM 1 GM in 0.9 % SODIUM CHLORIDE Mini-bag 100 ML IVPB (18:11)
[2022-12-29] MEDS: SODIUM CHLORIDE 0.9 % (FLUSH) 10 ML SYRINGE 5 ML IVF (18:20)
[2022-12-29] MEDS: 0.9 % SODIUM CHLORIDE 250 ml IV (18:20)
== END 2023-01-01 15:57 | disposition home or self-care (01) ==
LOC: MS OUT 17:56
PROVIDERS: Visit Provider Surgery
DX: T81.43XA Infection following a procedure, organ and space surgical site, initial encounter (principal); K65.1 Peritoneal abscess
CPT/HCPCS: 96365; 99211; J1335; J7050

== ENCOUNTER 2024-01-08 01:55 | Emergency (ER) | payer SELFPAY ==
[2024-01-08] VITALS (21 sets, daily range): BP systolic 98–124; BP diastolic 60–79; PULSE 49–79; RESP 16; TEMP 36.1; O2SAT 94–100; BMI 24.3
--- NOTE | 2024-01-08 02:08 | ED_ITS ---
HPI - General Adult General Chief complaint: Chest Pain Stated complaint: chest pain Time Seen by Provider: 01/08/24 02:07 History of Present Illness HPI narrative: pt woke up with chest pain at 0130. Pain rated 8/10, now settled to 4/ 10. Pain radiates to jaw . Pain is at center to left side. Pt reports no nausea and no vomiting. Pt reports being light headed. 43-year-old man presenting to the emergency department with concern of chest pain. Seemed to have begun with an intense pressure pain in his mid sternum. This woke him from sleep. Was also experiencing tingling or but a numbness sensation into his left arm. He was lightheaded with this as well. No cough or cold symptoms preceding this. No fever. Discomfort did seem to radiate into his jaw. No nausea. Does not feel that he needs any intervention at this point. Pain seems to be worse with breathing. Later in conversation does endorse a history of esophageal reflux occasionally. Difficult history last year of perforated appendix and subsequent intra- abdominal abscess and then a pneumonia Related Data Previous Rx's ?Medication ?Instructions ?Recorded amoxicillin 875 mg-potassium 1 tab PO BID #14 tabs 12/31/22 clavulanate 125 mg tablet Allergies Allergy/AdvReac Type Severity Reaction Status Date / Time No Known Drug Allergies Allergy Verified 12/23/22 13:50 Review of Systems Status of ROS: Reports: 6 or more systems reviewed and unremarkable except as noted in History and below [facility] Surgical History S/P appendectomy ?Z90.49 - Acquired absence of other specified parts of digestive tract (ICD- 10) Social History Smoking Status: Never smoker Do you use any of these nicotine containing products: None How often do you have six or more drinks on one occasion: Never AUDIT-C Alcohol total score: 0 Non-prescribed substance use: denies use Exam Narrative: Exam Narrative: Pleasant. NAD. Subtly anxious I think. Breathing easily though little uncomfortable. Pain is not reproducible to palpation of the chest wall. Not necessarily worse nor improved when was to set. Heart in regular rate and rhythm to actually slow without murmur rub or gallop. Lungs are clear. Breath sounds throughout. There is no supraclavicular crepitus. Abdomen is soft and not particularly tender. Extremities are well perfused without edema. Const: Vital Signs, click to edit/add: Vital Signs - 24 hr 01/08/24 01:58 01/08/24 02:19 01/08/24 02:20 Temperature 97.0 F L Pulse Rate 52 L 52 L Pulse Rate [Right Pulse Oximeter] 50 L Respiratory Rate 16 Blood Pressure Blood Pressure [Le ft Upper Arm] 124/79 Pulse Oximetry 100 96 94 Oxygen Delivery Me thod Room Air 01/08/24 02:21 01/08/24 02:21 01/08/24 02:22 Temperature Pulse Rate 49 L 55 L Pulse Rate [Right Pulse Oximeter] Respiratory Rate Blood Pressure 105/70 106/67 Blood Pressure [Le ft Upper Arm] Pulse Oximetry 95 96 95 Oxygen Delivery Me thod 01/08/24 02:40 01/08/24 02:42 01/08/24 03:00 Temperature Pulse Rate 54 L 54 L 55 L Pulse Rate [Right Pulse Oximeter] Respiratory Rate Blood Pressure 99/61 Blood Pressure [Le ft Upper Arm] Pulse Oximetry 94 95 94 Oxygen Delivery Me thod 01/08/24 03:01 01/08/24 03:20 01/08/24 03:22 Temperature Pulse Rate 55 L 56 L 64 Pulse Rate [Right Pulse Oximeter] Respiratory Rate Blood Pressure 102/65 102/62 Blood Pressure [Le ft Upper Arm] Pulse Oximetry 95 94 95 Oxygen Delivery Me thod 01/08/24 03:40 01/08/24 03:42 01/08/24 04:00 Temperature Pulse Rate 55 L 79 55 L Pulse Rate [Right Pulse Oximeter] Respiratory Rate Blood Pressure 98/63 Blood Pressure [Le ft Upper Arm] Pulse Oximetry 94 94 95 Oxygen Delivery Me thod 01/08/24 04:02 01/08/24 04:20 01/08/24 04:21 Temperature Pulse Rate 54 L 55 L 54 L Pulse Rate [Right Pulse Oximeter] Respiratory Rate Blood Pressure 100/60 103/66 Blood Pressure [Le ft Upper Arm] Pulse Oximetry 96 95 96 Oxygen Delivery Me thod 01/08/24 04:40 01/08/24 04:41 01/08/24 05:00 Temperature Pulse Rate 56 L 56 L 67 Pulse Rate [Right Pulse Oximeter] Respiratory Rate Blood Pressure 104/69 Blood Pressure [Le ft Upper Arm] Pulse Oximetry 96 96 97 Oxygen Delivery Me thod 01/08/24 05:02 Temperature Pulse Rate 62 Pulse Rate [Right Pulse Oximeter] Respiratory Rate Blood Pressure 102/66 Blood Pressure [Le ft Upper Arm] Pulse Oximetry 97 Oxygen Delivery Me thod Documenting provider has reviewed patient's vital signs: yes Course Vital Signs Vital signs: Initial Vital Signs Temperature 97.0 F L 01/08/24 01:58 Temperature Source Temporal Artery Scan 01/08/24 01:58 Pulse Rate 50 L 01/08/24 01:58 Pulse Rhythm Regular 01/08/24 01:58 Respiratory Rate 16 01/08/24 01:58 Blood Pressure 124/79 01/08/24 01:58 Blood Pressure Mean 94 01/08/24 01:58 Blood Pressure Position Semi-Fowlers 01/08/24 01:58 Pulse Oximetry 100 01/08/24 01:58 Oxygen Delivery Method Room Air 01/08/24 01:58 Vital Signs Temperature 97.0 F L 01/08/24 01:58 Pulse Rate 50 L 01/08/24 01:58 Respiratory Rate 16 01/08/24 01:58 Blood Pressure 124/79 01/08/24 01:58 Pulse Oximetry 100 01/08/24 01:58 Oxygen Delivery Method Room Air 01/08/24 01:58 Temperature 97.0 F L 01/08/24 01:58 Pulse Rate 62 01/08/24 05:02 Respiratory Rate 16 01/08/24 01:58 Blood Pressure 102/66 01/08/24 05:02 Pulse Oximetry 97 01/08/24 05:02 Oxygen Delivery Method Room Air 01/08/24 01:58 Medical Decision Making MDM Narrative Medical decision making narrative: Concern evaluate for potential ischemic cardiovascular event. This may have been reflux related. Only reliably reproducible factor at this point is some demonstrated pleuritic pain. Might have pleurisy. Clinically less likely pericarditis. Unlikely pulmonary embolus. Vascular disruption also possibility. No prodrome to suggest pneumonia. Pancreatitis? Not really reproducible. Tachyarrhythmia? Bradycardic on presentation Monitor on cardiac rehabilitation program director. One-view chest reviewed by me was unremarkable. EKG does not suggest pericarditis Labs are reassuring. No further events in the emergency department. See patient discharge plan for further discussion Medical Records Medical records reviewed: Yes I reviewed the patient's medical records Lab Data Lab results reviewed: Yes I reviewed the patient's lab results Labs: Lab Results 01/08/24 01/08/24 01/08/24 Range/Units 02:10 02:24 03:41 WBC 8.11 (4.50-11.00) K/uL RBC 5.05 (4.30-5.90) m/uL Hgb 14.7 (13.5-17.5) gm/dL Hct 42.8 (37.0-53.0) % MCV 85 (80-100) fL MCH 29 (26-34) pg MCHC 34 (32-36) gm/dL RDW Coeff of Caesar 12.7 (11.5-15.5) % Plt Count 249 (140-440) K/uL Neut % (Auto) 40.9 L (42.0-72.0) % Lymph % (Auto) 48.1 H (20-44) % [place] % (Auto) 8.9 (0.0-11.0) % Eos % (Auto) 1.5 (0.0-7.0) % Baso % (Auto) 0.5 (0.0-3.0) % Neut # (Auto) 3.30 (1.7-7.0) K/uL Lymph # (Auto) 3.90 H (0.90-2.90) K/uL [place] # (Auto) 0.70 (0.00-0.90) K/UL Eos # (Auto) 0.12 (0.00-0.50) K/uL Baso # (Auto) 0.04 (0.00-0.30) K/uL Abs Immat Gran (auto) 0.01 (0.00-0.30) K/uL Imm/Tot Granulo (auto) 0.1 % D-Dimer Quant (PE/DVT) < 0.22 (0.00-0.50) ug/ml Sodium 137 (135-149) mmol/L Potassium 3.4 L (3.6-5.1) mmol/L Chloride 106 (96-114) mmol/L Carbon Dioxide 22 (20-32) mmol/L Anion Gap 9 (7-15) mEq/L BUN 21 (5-24) mg/dL Creatinine 0.8 (0.5-1.5) mg/dL Estimated Creat Clear 117.56 Estimated GFR 114 ml/min Glucose 99 (60-115) mg/dL Calcium 9.1 (8.4-10.6) mg/dL Total Bilirubin 0.6 (0.1-1.5) mg/dL Direct Bilirubin 0.4 (0.0-0.5) mg/dL AST 26 (12-35) U/L ALT 27 (4-50) U/L Alkaline Phosphatase 59 (40-150) U/L Troponin I < 0.01 L (0.01-0.04) ng/mL C-Reactive Protein < 0.5 L (0.5-1.0) mg/dL NT-Pro-B Natriuret Pep < 20 pg/mL Total Protein 6.5 (6.0-8.3) g/dL Albumin 4.4 (3.3-5.0) g/dL Lipase 141 (23-300) U/L POC Troponin I 0.00 L 0.00 L (0.01-0.04) ng/ml ECG Data Attestation: I personally reviewed and interpreted this ECG as follows: (Sinus bradycardia rate of 49. No ischemic changes) Discharge Plan Discharge Clinical Impression: Atypical chest pain Patient Disposition: Home w/ Parent or Adult Condition: Improved Additional Instructions: You seem to have experience some pleuritic chest pain. I suppose this can mean you have pleurisy, absent other findings here today. You could consider taking 400-600 mg of ibuprofen 3 times daily over the next 4- 5 days or alternatively, 375 mg of naproxen twice daily over the same time period. Stay well-hydrated. Return for marked increase in pain, persistent and increasing shortness of breath. Prescriptions: No Action amoxicillin-pot clavulanate 875-125 mg tablet 1 tab PO BID Qty: 14 0RF Follow Up/Referrals: Provider,Not a Local [Primary Care Provider] - Stand Alone Forms: [facility] Info Instructions
--- NOTE | 2024-01-08 02:17 | CRLHL7_ITS ---
For Patients: As a result of the Cures Act, medical imaging exams and procedure reports are released immediately into your electronic medical record. You may view this report before your referring provider. If you have questions, please contact your health care provider. INDICATION: Sternal chest pain, pressure TECHNIQUE: Chest radiograph 1 view COMPARISON: None FINDINGS: Mediastinum: The mediastinum is normal in appearance. The heart silhouette is normal in size and morphology. Lung: Both lungs are unremarkable in appearance with small lung volumes. No sign of pleural effusion seen. No pneumothorax is identified. Bone and Soft tissue: Unremarkable for age. IMPRESSION: 1. No acute cardiopulmonary disease is seen. Dictated by: Mann Coburn MD @ 01/08/2024 02:47:47 (Electronically Signed)
[2024-01-08 02:30] LABS: Basophils Absolute Auto 0.04 K/uL (0.00-0.30); Basophils Percent Auto 0.5 % (0.0-3.0); Eosinophils Absolute Auto 0.12 K/uL (0.00-0.50); Eosinophils Percent Auto 1.5 % (0.0-7.0); Hematocrit 42.8 % (37.0-53.0); Hemoglobin* 14.7 gm/dL (13.5-17.5); Immature Granulocytes Abs Auto 0.01 K/uL (0.00-0.30); Immature Granulocytes Pct Auto 0.1 %; Lymphocytes Percent Auto 48.1 % (20-44); Mean Corpuscular HGB Conc 34 gm/dL (32-36); Mean Corpuscular Hemoglobin 29 pg (26-34); Mean Corpuscular Volume 85 fL (80-100); Monocytes Percent Auto 8.9 % (0.0-11.0); Neutrophils Percent Auto 40.9 % (42.0-72.0); Platelet Count* 249 K/uL (140-440); RDW Coefficient of Variation % 12.7 % (11.5-15.5); Red Blood Count 5.05 m/uL (4.30-5.90); White Blood Count* 8.11 K/uL (4.50-11.00)
[2024-01-08 02:38] LABS: Slide Review Reflex No
[2024-01-08 02:42] LABS: Albumin* 4.4 g/dL (3.3-5.0); Chloride* 106 mmol/L (96-114)
[2024-01-08 02:43] LABS: Potassium* 3.4 mmol/L (3.6-5.1); Sodium* 137 mmol/L (135-149)
[2024-01-08 02:45] LABS: Creatinine* 0.8 mg/dL (0.5-1.5); Est. Creatinine Clearance* 117.56; Estimated Glomerular Filt Rate 114 ml/min
[2024-01-08 02:46] LABS: Alanine Aminotransferase* 27 U/L (4-50); Alkaline Phosphatase* 59 U/L (40-150); Anion Gap 9 mEq/L (7-15); Aspartate Amino Transferase* 26 U/L (12-35); Bilirubin Direct* 0.4 mg/dL (0.0-0.5); Bilirubin Total* 0.6 mg/dL (0.1-1.5); Blood Urea Nitrogen* 21 mg/dL (5-24); Calcium* 9.1 mg/dL (8.4-10.6); Carbon Dioxide* 22 mmol/L (20-32); Glucose* 99 mg/dL (60-115); Lipase* 141 U/L (23-300); Total Protein* 6.5 g/dL (6.0-8.3)
[2024-01-08 02:49] LABS: C Reactive Protein* < 0.5 mg/dL (0.5-1.0)
[2024-01-08 03:03] LABS: NT Pro B Type NatriureticPept* < 20 pg/mL; Troponin I* < 0.01 ng/mL (0.01-0.04)
--- OUTSIDE RECORDS SUMMARY | 2024-01-08 03:05 | XMS_ITS | Clinical Summary ---
Author Organization [facility] Address [place], [place] [address] Care Team Providers Care Sheriff'S Officer Name Role Phone Emerson Gay MD Primary Care Provider [phone] Allergies No known active allergies Medications Medication Sig Dispensed Refills Start Date End Date Status naproxen (ALEVE) 220 mg tablet Take 1 tablet by mouth 2 times daily with meals. 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 18 Immunizations Name Administration Dates Next Due Tdap 02/04/2010 Family History Medical History Relation Name Comments Diabetes Father Cancer No Family History Heart Disease No Family History Relation Name Status Comments Father Alive Mother Alive Social History Tobacco Use Types Packs/Day Years Used Date Smoking Tobacco: Former Cigarettes 0 03/02/2003 - 03/02/2005 Smokeless Tobacco: Never Tobacco Cessation:Counseling Given: Yes Alcohol Use Standard Drinks/Week Comments Yes 0 (1 standard drink = 0.6 oz pur e alcohol) 2 beers every other day Sex and Gender Information Value Date Recorded Sex Assigned at Not on file Gender Identity Not on file Sexual Orientation Not on file Obstetrics History Last Filed Vital Signs Vital Sign Reading Time Taken Comments Blood Pressure 122/80 11/02/2017 1:58 PM CDT Pulse 76 11/02/2017 1:58 PM CDT Temperature 36.8 ??C (98.3 ??F) 03/02/2017 8:38 AM CD T Respiratory Rate - - Oxygen Saturation 98% 08/31/2017 1:10 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 Inhaled Oxygen Concentration - - Weight 77.8 kg (171 lb 8 oz) 11/02/2017 1:58 PM CDT Height 168.9 cm (5' 6.5) 11/02/2017 1:58 PM CDT Body Mass Index 27.27 11/02/2017 1:58 PM CDT Plan of Treatment Health Maintenance Due Date Last Done Comments HIV for age 15-65 1997 Hepatitis C screening for age 18-79 2000 Depression screening for age 12+ 03/02/2018 03/02/2017, 12/31/2015 BMI (ht and wt on same day) for age 18+ 11/02/2018 11/02/2017, 10/27/2017, 10/12/2017, Additional history exists Tetanus booster 02/05/2020 02/04/2010 Lipids for age 35-44 03/02/2022 03/02/2017 COVID-19 vaccine series (2022-24 season) 2023 Influenza for age 9-49 03/26/2024 Tdap Completed 02/04/2010 Pneumococcal series for age 6-64 Aged Out No longer eligible based on patient's age to complete this topic Procedures Procedure Name Priority Date/Time Associated Diagnosis Comments LIPID PANEL W REFLEX MEASURED LDL Routine 03/02/2017 9:31 AM CDT Screening cholesterol level from Last 3 Months or Most Recently Relevant to Health Maintenance Results * LIPID PANEL W REFLEX MEASURED LDL (03/02/2017 9:31 AM CDT) CHOLESTEROL,TOTAL 191 100 - 199 mg/dL 03/02/2017 4:[address] [facility] [employer] [facility] TRIGLYCERIDES 118 <150 mg/dL 03/02/2017 4:11 PM CDT [facility] HDL CHOLESTEROL 66 >40 mg/dL 7 4:11 PM CDT [facility] NON-HDL CHOLESTEROL 125 <145 mg/dl 03/02/2017 4:11 PM CDT [facility] CHOL/HDL RATIO 2.89 <4.50 03/02/2017 4:11 PM CDT [facility] LDL CHOLESTEROL 101 <=130 mg/dL 03/02/2017 4:11 PM CDT [facility] PATIENT STATUS FASTING 03/02/2017 4:11 PM CDT [facility] Blood BLOOD SPECIMEN / Unknown Venipuncture / Unknown 03/02/2017 9:31 AM CDT 03/02/2017 9:31 AM CDT Alec Koch MD CHEMISTRY [facility] [address] [place] [address], [facility] [address] [place] [address], from Last 3 Months or Most Recently Relevant to Health Maintenance Care Teams Sheriff'S Officer Relationship Specialty Start Date End Date Emerson Gay MD [address] [facility] [place] [address] PCP - General 06/30/06
[2024-01-08 03:14] LABS: D Dimer Quantitative* < 0.22 ug/ml (0.00-0.50)
== END 2024-01-08 05:17 | disposition home or self-care (01) ==
PROVIDERS: Emergency Provider Family Medicine
DX: R07.9 Chest pain, unspecified (principal)
CPT/HCPCS: 36415; 71045; 80048; 80076; 83690; 83880; 84484; 85025; 85379; 86140; 93005; 94761; 99284; 99285